=== PATIENT | male | born 1950 | race Caucasian/White ===

== ENCOUNTER 2019-02-20 11:22 | Emergency (ER) | payer OTHER, MEDICAID ==
[~2019-02-20] VITALS: Ht 185.4 cm; Wt 80.7 kg
[2019-02-20 11:43] VITALS: BP 123/57
== END 2019-02-20 13:16 | disposition home or self-care (01) ==
LOC: ER 11:25
DX: L03.116 Cellulitis of left lower limb (principal); S91.312D Laceration without foreign body, left foot, subsequent encounter; I11.0 Hypertensive heart disease with heart failure; I50.9 Heart failure, unspecified; E11.9 Type 2 diabetes mellitus without complications; N28.89 Other specified disorders of kidney and ureter; Z98.890 Other specified postprocedural states; Z60.2 Problems related to living alone; X58.XXXD Exposure to other specified factors, subsequent encounter
CPT/HCPCS: 73610-TC; 73630-TC